=== PATIENT | female | born 1940 | race Asian ===

== ENCOUNTER → 2022-01-17 | Day surgery (SDC) | payer MEDICARE, BC ==
[~2022-01-17] VITALS: Ht 160 cm; Wt 67.6 kg
[~2022-01-17] MED LIST: ACETAMINOPHEN 325MG TABLET PO PRN; AMLO10TA80 PO; ATROPINE SULFATE 1MG/10ML SYR IV PRN; DIPHENHYDRAMINE 50MG/ML VIAL ONE; FAMOTIDINE 20MG/2ML VIAL IV ONE; FENTANYL CITRATE/PF 50MCG/ML 2ML VIAL ONE; HEPARIN SODIUM 1,000 UNIT/1ML VIAL IV ONE; HYDROCORTISONE SOD SUCCINATE 250 MG/2 ML VIAL ONE; IODIXANOL 320MG/ML 100 ML BOTTLE IV ONE; LIDOCAINE HCL/PF 1% 10 MG/ML 5ML VIAL ONE; LIDOCAINE HCL/PF 2% 20MG/ML 5 ML/VIAL ONE; LOSA100T32 PO; METF-416 PO; MIDAZOLAM HCL 2 MG/2 ML VIAL ONE; ONDANSETRON HCL 4MG/2ML INJ IV PRN; SIMV-43 PO
== END | disposition home or self-care (01) ==
LOC: CCL 12:01
PROVIDERS: ATTEND Specialist
DX: I35.0 Nonrheumatic aortic (valve) stenosis (principal); I25.10 Atherosclerotic heart disease of native coronary artery without angina pectoris; I10 Essential (primary) hypertension; E78.5 Hyperlipidemia, unspecified; E11.9 Type 2 diabetes mellitus without complications; Z79.899 Other long term (current) drug therapy; Z79.84 Long term (current) use of oral hypoglycemic drugs; Z98.890 Other specified postprocedural states; Z91.041 Radiographic dye allergy status
CPT/HCPCS: 93460; C1760; C1769; C1887; C1893; J1200; J1644; J1720; J2250; J3010; J3490; Q9967